=== PATIENT | female | born 1950 | race Two or more races ===

== ENCOUNTER 2016-09-04 13:33 | Inpatient (IN) | payer OTHER ==
--- NOTE | 2016-09-04 14:12 | HP ---
COWS - Scale Resting Pulse: 0= [place] 80 or Below Sweatin=Flushed/Facial Moisture Restless Observation: 3= Extraneous Movement Pupil Size: 2= Moderately Dilated Bone or Joint Aches: 2= Severe Diffuse Aches Runny Nose/ Eye Tearin= Runny Nose/Eyes GI Upset > 30mins: 3= Vomiting/Diarrhea Tremor Observation: 2= Slight Tremor Visible Yawning Observation: 2= >3x During Session Anxiety or Irritability: 2=Irritable/Anxious Goose Flesh Skin: 0=Smooth Skin COWS Score: 20 Admission ROS S - HPI Chief Complaint: I NEED HELP TO STOP USING HEROIN Allergies/Adverse Reactions: Allergies Allergy/AdvReac Type Severity Reaction Status Date / Time No Known Allergies Allergy Verified 09/04/16 13:51 History of Present Illness: THIS 65 YEARS OLD FEMALE WITH HEROIN DEPENDENCE,WITHDRAWAL SYMPTOM,LAST DETOX TO 12/09/15 S/P ARTHROSCOPY SURGERY OF RIGHT KNEE HEPATITIS C ANXIETY AND DEPRESSION CELLULITIS OF RIGHT WRIST ANXIETY AND DEPRESSION NICOTINE DEPENDENE POSITIVE PPD LONGEST PERIOD OF SOBRIETY 8 MONTHS Exam Limitations: No Limitations - Ebola screening Have you traveled outside of the country in the last 21 days: No (N) Have you had contact with anyone from an Ebola affected area: No Have you been sick,other than usual withdrawal symptoms: No Do you have a fever: No - Review of Systems Constitutional: Chills, Loss of Appetite, Malaise, Night Sweats, Weakness EENT: reports: Tearing, Nose Congestion Respiratory: reports: No Symptoms reported Cardiac: reports: No Symptoms Reported GI: reports: Diarrhea, Nausea, Vomiting, Abdominal cramping : reports: No Symptoms Reported Musculoskeletal: reports: Back Pain, Joint Pain, Muscle Pain, Joint Stiffness Integumentary: reports: Dryness, Other (REDNESS OF RIGHT WRIST AT SITE OF INJECTION 2 DAYS AGO) Neuro: reports: Headache, Tremors Endocrine: reports: No Symptoms Reported Hematology: reports: No Symptoms Reported Psychiatric: reports: Anxious, Depressed Patient History - Patient Medical History Hx Anemia: No Hx Asthma: No Hx Chronic Obstructive Pulmonary Disease (COPD): No Hx Cancer: No Hx Cardiac Disorders: No Hx Congestive Heart Failure: No Hx Hypertension: No Hx Hypercholesterolemia: No Hx Pacemaker: No HX Cerebrovascular Accident: No Hx Seizures: No Hx Dementia: No Hx Diabetes: No Hx Gastrointestinal Disorders: No Hx Liver Disease: No Hx Genitourinary Disorders: No Hx Sexually Transmitted Disorders: No Hx Renal Disease (ESRD): No Hx Thyroid Disease: No Hx Human Immunodeficiency Virus (HIV): No (LAST 02/10) Hx Hepatitis C: No Hx Depression: Yes (ANXIETY) Hx Suicide Attempt: No Hx Bipolar Disorder: No Hx Schizophrenia: No Other Medical History: NO SUICIDAL,NO HOMICIDAL,CELLULITIS OF RIGHT WRIST - Patient Surgical History Past Surgical History: Yes Hx Neurologic Surgery: No Hx Cataract Extraction: No Hx Cardiac Surgery: No Hx Lung Surgery: No Hx Breast Surgery: No Hx Breast Biopsy: No Hx Abdominal Surgery: No Hx Appendectomy: No Hx Cholecystectomy: No Hx Genitourinary Surgery: No Hx Section: No Hx Orthopedic Surgery: Yes (2012-rt knee arthroscopy ) Hx Hysterectomy: No Anesthesia Reaction: No - PPD History Previous Implant?: Yes Documented Results: Positive w/proof Implanted On Prior [facility] Admission?: No Date: 12/14/13 Results: 0 mm PPD to be Administered?: No - Reproductive History Last Menstrual Period: 12/08/03 Patient : No - Smoking Cessation Smoking history: Current every day smoker Have you smoked in the past 12 months: Yes Aproximately how many cigarettes per day: 10 Cigars Per Day: 0 Hx Chewing Tobacco Use: No Initiated information on smoking cessation: Yes 'Breaking Loose' booklet given: 09/04/16 - Substance & Tx. History Hx Alcohol Use: No Hx Substance Use: Yes Substance Use Type: Heroin Hx Substance Use Treatment: Yes (12/05/15 TO 12/09/15) - Substances Abused Heroin Route: Injection Frequency: Daily Amount used: 3-4 bags Age of first use: 19 Date of Last Use: 09/04/16 Family Disease History - Family Disease History Family Disease History: Diabetes: Mother (vaginal ca), CA: Mother, Other: Son ( DSA) Admission Physical Exam BHS - Vital Signs Vital Signs: Vital Signs Temperature 98.2 F 09/04/16 14:11 Pulse Rate 72 09/04/16 14:11 Respiratory Rate 18 09/04/16 14:11 Blood Pressure 125/70 09/04/16 14:11 O2 Sat by Pulse Oximetry (%) - Physical General Appearance: Yes: Moderate Distress, Tremorous, Irritable, Sweating, Anxious HEENTM: Yes: Nasal Congestion Respiratory: Yes: Lungs Clear Breast: Yes: Breast Exam Deferred Cardiology: Yes: Within Normal Limits, Regular Rhythm, Regular Rate, S1, S2 Abdominal: Yes: Within Normal Limits, Normal Bowel Sounds, Non Tender, Flat, Soft Genitourinary: Yes: Within Normal Limits Back: Yes: Muscle Spasm Musculoskeletal: Yes: Back pain, Joint Stiffness, Muscle Pain Extremities: Yes: Tremors, Inflammation (CELLULIITS OF RGHT WRISTS SWELLING WITH REDNESS) Neurological: Yes: reference test clerk II-XII NML intact, Fully Oriented, Alert, Motor Strength 5/5 Integumentary: Yes: Dry, Track Marcelino Lymphatic: Yes: Within Normal Limits - Diagnostic (1) PPD positive Current Visit: No Status: Acute (2) Hepatitis C Current Visit: No Status: Chronic Qualifiers: Viral hepatitis chronicity: chronic Hepatic coma status: without hepatic coma Qualified Code(s): B18.2 - Chronic viral hepatitis C (3) Nicotine dependence Current Visit: No Status: Chronic Qualifiers: Nicotine product type: cigarettes Substance use status: uncomplicated Qualified Code(s): F17.210 - Nicotine dependence, cigarettes, uncomplicated (4) Opioid dependence with withdrawal Current Visit: No Status: Chronic (5) Cellulitis Current Visit: Yes Status: Acute Cleared for Admission S - Detox or Rehab [facility] Level of Care: Medically Managed Detox Regimen/Protocol: Methadone S Breath Alcohol Content Breath Alcohol Content: 0
[2016-09-04 14:13] VITALS: BMI 26.0
[2016-09-04] MEDS ORDERED: METHADONE HCL 10 MG TABLET (FOR DETOX USE ONLY) PO ONE ×2 (14:32→23:00)
[2016-09-04] MEDS ORDERED: P-EPHED 60MG/TRIPROLIDI 2.5MG TABLET PO PRN (14:32)
[2016-09-04] MEDS ORDERED: diphenhydrAMINE HCL 50 MG CAPSULE PO PRN (14:32)
[2016-09-04] MEDS ORDERED: MAGNESIUM CITRATE 300 ML BOTTLE PO PRN (14:32)
[2016-09-04] MEDS ORDERED: LOPERAMIDE HCL 2 MG CAPSULE PO PRN (14:32)
[2016-09-04] MEDS ORDERED: MAG HYDROX/AL HYDROX/SIMETH 30 ML UNIT-DOSE CUP PO PRN (14:32)
[2016-09-04] MEDS ORDERED: ACETAMINOPHEN 325 MG TABLET (FP) PO PRN (14:32)
[2016-09-04] MEDS ORDERED: NICOTINE POLACRILEX 2 MG GUM BUC PRN (14:32)
[2016-09-04] MEDS ORDERED: MAGNESIUM HYDROX 2400MG/30ML ORAL SUSPENSION 30 ML CUP PO PRN (14:32)
[2016-09-04] MEDS ORDERED: hydrOXYzine PAMOATE 50 MG CAPSULE (FP) PO PRN (14:32)
[2016-09-04] MEDS ORDERED: guaiFENesin/D-METHORPHAN HB 10 ML UNIT-DOSE CUPS PO PRN (14:32)
[2016-09-04] MEDS ORDERED: MENTHOL/PHENOL 1 EACH UD MM PRN (14:32)
[2016-09-04] MEDS ORDERED: IBUPROFEN 400 MG TABLET (FP) PO PRN (14:32)
[2016-09-04] MEDS ORDERED: METHADONE HCL 10 MG TABLET ONE (17:39)
[2016-09-04] MEDS: diazePAM 5 MG TABLET PO PRN ×2 (17:57→22:28)
[2016-09-04] MEDS: CEPHALEXIN MONOHYDRATE 500 MG CAPSULE (UD) PO SCH (17:57)
[2016-09-04 18:49] LABS: URINE APPEARANCE SLCLOUDY; URINE BILIRUBIN NEGATIVE (NEGATIVE); URINE COLOR YELLOW; URINE GLUCOSE (UA) NEGATIVE (NEGATIVE); URINE KETONE NEGATIVE (NEGATIVE); URINE NITRITE NEGATIVE (NEGATIVE); URINE PROTEIN NEGATIVE (NEGATIVE); URINE UROBILINOGEN NEGATIVE E.U./dl (0.2-1.0)
[2016-09-04 18:57] LABS: URINE BLOOD 1+ (NEGATIVE); URINE LEUK ESTERASE 2+ (NEGATIVE)
[2016-09-04 19:00] LABS: URINE BACTERIA MANY /hpf (NONE SEEN); URINE MUCUS FEW; URINE RBC 2 /hpf (0-3); URINE WBC 31 /hpf (3-5)
[2016-09-05] MEDS: CEPHALEXIN MONOHYDRATE 500 MG CAPSULE (UD) PO SCH ×5 (00:36→23:12)
--- NOTE | 2016-09-05 07:55 | CONSULT ---
[facility] Psychiatric Consult - Data Date of interview: 09/05/16 Admission source: [facility] Identifying data: This is 65 years old lithuanian speaking female with history of MDD, Iintoxicated with: Heroin, Nicotine, Alcohol abuse history Substance Abuse History: - Smoking Cessation. Smoking history: Current every day smoker. Have you smoked in the past 12 months: Yes. Aproximately how many cigarettes per day: 10. Cigars Per Day: 0. Hx Chewing Tobacco Use: No. Initiated information on smoking cessation: Yes. 'Breaking Loose' booklet given : 09/04/16. - Substance & Tx. History. Hx Alcohol Use: No. Hx Substance Use: Yes. Substance Use Type: Heroin. Hx Substance Use Treatment: Yes (12/05/15 TO 12/09/15). - Substances Abused. Heroin. Route: Injection. Frequency: Daily. Amount used: 3-4 bags. Age of first use: 19. Date of Last Use: Medical History: History of Cellulitis, Hisotry of PPD+, , HepC+, Hisotry of Pancreatitis Psychiatric History: Patient reprots history of MDD, unclear psychiatrioc hospitalization history, preoccupied with insomnia, reports taking prior to admission: Ambien 190mg po qhs. Zoloft 25mg poqd Physical/Sexual Abuse/Trauma History: Denies Additional Comment: Ambien 190mg po qhs. Zoloft 25mg poqd Mental Status Exam - Mental Status Exam Alert and Oriented to: Person Cognitive Function: Fair Patient Appearance: Unkempt Mood: Anxious Affect: Labile Patient Behavior: Cooperative Voice Loudness: Normal Thought Process: Goal Oriented Thought Disorder: Being Controlled Hallucinations: Denies Suicidal Ideation: Denies Homicidal Ideation: Denies Insight/Judgement: Fair Sleep: Difficulty falling asleep Appetite: Weight gain Muscle strength/Tone: Normal Gait/Station: Normal Additional Comments: Ambien 190mg po qhs. Zoloft 25mg poqd Psychiatric Findings - Problem List ([place] 1, 2,3) (1) Cellulitis Current Visit: Yes Status: Acute (2) Major depressive disorder, recurrent episode, severe, with psychosis Current Visit: No Status: Chronic (3) Nicotine dependence Current Visit: No Status: Chronic Qualifiers: Nicotine product type: cigarettes Substance use status: uncomplicated Qualified Code(s): F17.210 - Nicotine dependence, cigarettes, uncomplicated (4) Opioid dependence Current Visit: No Status: Chronic Qualifiers: Substance use status: uncomplicated Qualified Code(s): F11.20 - Opioid dependence, uncomplicated (5) Opioid dependence with withdrawal Current Visit: No Status: Chronic (6) Chronic alcoholic pancreatitis Current Visit: No Status: Suspected - Initial Treatment Plan Initial Treatment Plan: Ambien 190mg po qhs. Zoloft 25mg poqd
[2016-09-05] MEDS ORDERED: METHADONE HCL 10 MG TABLET (FOR DETOX USE ONLY) PO ONE (10:00)
[2016-09-05 10:09] LABS: MCH 29.2 pg (25.7-33.7); MCHC 32.6 g/dl (32.0-36.0); MEAN CELL VOLUME 89.5 fl (80-96); MEAN PLT VOLUME 8.3 fl (7.5-11.1); PLATELET COUNT 249 K/MM3 (134-434); RDW 15.1 % (11.6-15.6); WHITE BLOOD COUNT 5.9 K/mm3 (4.0-10.0)
[2016-09-05 10:19] LABS: ALBUMIN 3.4 g/dl (3.4-5.0); ALK PHOS 79 U/L (45-117); ANION GAP 5 (8-16); BILIRUBIN,TOTAL 0.4 mg/dL (0.2-1.0); CALCIUM 9.3 mg/dL (8.5-10.1); CO2 30 mmol/L (21-32); CREATININE 0.6 mg/dL (0.55-1.02); GLUCOSE,RANDOM 118 mg/dL (74-106); SGOT/AST 53 U/L (15-37); SGPT/ALT 53 U/L (12-78); TOT PROT 7.6 g/dl (6.4-8.2)
[2016-09-05] MEDS: diazePAM 5 MG TABLET PO PRN (10:25)
[2016-09-05] MEDS: PRENATAL VITAMINS W/ FOLIC ACID TABLET (FP) PO SCH (10:25)
[2016-09-05] MEDS: SERTRALINE HCL 25 MG TABLET (FP) PO SCH (10:27)
--- NOTE | 2016-09-05 11:43 | PN ---
S COWS - Scale Resting Pulse: 0= [place] 80 or Below Sweatin=Flushed/Facial Moisture Restless Observation: 1= Difficult to Sit Still Pupil Size: 0= Normal to Room Light Bone or Joint Aches: 2= Severe Diffuse Aches Runny Nose/ Eye Tearin= Runny Nose/Eyes GI Upset > 30mins: 2= Nausea/Diarrhea Tremor Observation of Outstretched Hands: 2= Slight Tremor Visible Yawning Observation: 2= >3x During Session Anxiety or Irritability: 2=Irritable/Anxious Goose Flesh Skin: 3=Piloerection COWS Score: 18 S Progress Note (SOAP) Subjective: chills sweats nausea shakes interrupted sleep irritable agitation anxiety body aches Objective: 09/05/16 11:38 Vital Signs Temperature 98.3 F 09/05/16 10:32 Pulse Rate 73 09/05/16 10:32 Respiratory Rate 20 09/05/16 10:32 Blood Pressure 128/75 09/05/16 10:32 O2 Sat by Pulse Oximetry (%) Laboratory Tests 09/04/16 09/05/16 09/05/16 17:45 06:30 06:30 WBC 5.9 RBC 4.65 Hgb 13.6 Hct 41.6 MCV 89.5 MCHC 32.6 RDW 15.1 Plt Count 249 MPV 8.3 Sodium 140 Potassium 4.3 Chloride 105 Carbon Dioxide 30 Anion Gap 5 L BUN 12 Creatinine 0.6 Creat Clearance w eGFR > 60 Random Glucose 118 H D Calcium 9.3 Total Bilirubin 0.4 AST 53 H D ALT 53 D Alkaline Phosphatase 79 Total Protein 7.6 Albumin 3.4 Urine Color Yellow Urine Appearance Slcloudy Urine pH 5.0 Ur Specific [place] 1.016 Urine Protein Negative Urine Glucose (UA) Negative Urine Ketones Negative Urine Blood 1+ H Urine Nitrite Negative Urine Bilirubin Negative Urine Urobilinogen Negative Ur Leukocyte Esterase 2+ H D Urine RBC 2 Urine WBC 31 Ur Epithelial Cells Few Urine Bacteria Many Urine Mucus Few RPR Titer 09/05/16 06:30 WBC RBC Hgb Hct MCV MCHC RDW Plt Count MPV Sodium Potassium Chloride Carbon Dioxide Anion Gap BUN Creatinine Creat Clearance w eGFR Random Glucose Calcium Total Bilirubin AST ALT Alkaline Phosphatase Total Protein Albumin Urine Color Urine Appearance Urine pH Ur Specific [place] Urine Protein Urine Glucose (UA) Urine Ketones Urine Blood Urine Nitrite Urine Bilirubin Urine Urobilinogen Ur Leukocyte Esterase Urine RBC Urine WBC Ur Epithelial Cells Urine Bacteria Urine Mucus RPR Titer Nonreactive repeat u/a awake/alert ambulating no acute distress Assessment: 09/05/16 11:43 withdrawal sx Plan: continue detox increase fluids clonidine 0.1mg daily with parameters motrin/tylenol prn zofran prn
[2016-09-05] MEDS ORDERED: ONDANSETRON *ODT* 4 MG TABLET SL PRN (11:44)
[2016-09-05 16:42] LABS: URINE APPEARANCE CLOUDY; URINE BILIRUBIN NEGATIVE (NEGATIVE); URINE BLOOD NEGATIVE (NEGATIVE); URINE COLOR AMBER; URINE GLUCOSE (UA) NEGATIVE (NEGATIVE); URINE KETONE NEGATIVE (NEGATIVE); URINE LEUK ESTERASE 3+ (NEGATIVE); URINE NITRITE NEGATIVE (NEGATIVE); URINE PROTEIN NEGATIVE (NEGATIVE); URINE UROBILINOGEN NEGATIVE E.U./dl (0.2-1.0)
[2016-09-05 16:50] LABS: URINE MUCUS FEW; URINE RBC 4 /hpf (0-3); URINE WBC 44 /hpf (3-5)
[2016-09-05] MEDS: ZOLPIDEM TARTRATE 10 MG TABLET (PARK CARE ONLY) PO PRN (22:23)
[2016-09-05] MEDS: QUEtiapine FUMARATE 50 MG TABLET PO SCH (22:24)
[2016-09-05] MEDS: THIAMINE HCL 100 MG TABLET (FP) PO SCH (22:24)
[2016-09-06] MEDS: CEPHALEXIN MONOHYDRATE 500 MG CAPSULE (UD) PO SCH ×4 (06:22→23:02)
[2016-09-06] MEDS ORDERED: METHADONE HCL 5 MG TABLET (FOR DETOX USE ONLY) PO ONE (10:00)
[2016-09-06] MEDS: diazePAM 5 MG TABLET PO PRN ×2 (10:13→22:35)
[2016-09-06] MEDS: SERTRALINE HCL 25 MG TABLET (FP) PO SCH (10:13)
[2016-09-06] MEDS: PRENATAL VITAMINS W/ FOLIC ACID TABLET (FP) PO SCH (10:13)
[2016-09-06] MEDS ORDERED: INFLUENZA VACCINE 45 MCG/0.5 ML (MDV 16-17) IM ONE (12:00)
--- NOTE | 2016-09-06 14:22 | PN ---
[facility] COWS - Scale Resting Pulse: 0= [place] 80 or Below Sweatin=Flushed/Facial Moisture Restless Observation: 1= Difficult to Sit Still Pupil Size: 1= Pupils >than Normal Bone or Joint Aches: 1= Mild Discomfort Runny Nose/ Eye Tearin= Nasal Congestion GI Upset > 30mins: 1= Stomach Cramp Tremor Observation of Outstretched Hands: 1= Tremor [place], Not Seen Yawning Observation: 0= None Anxiety or Irritability: 2=Irritable/Anxious Goose Flesh Skin: 0=Smooth Skin COWS Score: 10 BHS Progress Note (SOAP) Subjective: interrupted sleep, sweats , mild anxiety Objective: 09/06/16 14:21 Vital Signs Temperature 98.1 F 09/06/16 09:51 Pulse Rate 71 09/06/16 09:51 Respiratory Rate 18 09/06/16 09:51 Blood Pressure 122/69 09/06/16 09:51 O2 Sat by Pulse Oximetry (%) Laboratory Tests 09/04/16 09/05/16 09/05/16 17:45 06:30 06:30 WBC 5.9 RBC 4.65 Hgb 13.6 Hct 41.6 MCV 89.5 MCHC 32.6 RDW 15.1 Plt Count 249 MPV 8.3 Sodium 140 Potassium 4.3 Chloride 105 Carbon Dioxide 30 Anion Gap 5 L BUN 12 Creatinine 0.6 Creat Clearance w eGFR > 60 Random Glucose 118 H D Calcium 9.3 Total Bilirubin 0.4 AST 53 H D ALT 53 D Alkaline Phosphatase 79 Total Protein 7.6 Albumin 3.4 Urine Color Yellow Urine Appearance Slcloudy Urine pH 5.0 Ur Specific [place] 1.016 Urine Protein Negative Urine Glucose (UA) Negative Urine Ketones Negative Urine Blood 1+ H Urine Nitrite Negative Urine Bilirubin Negative Urine Urobilinogen Negative Ur Leukocyte Esterase 2+ H D Urine RBC 2 Urine WBC 31 Ur Epithelial Cells Few Urine Bacteria Many Urine Mucus Few RPR Titer 09/05/16 09/05/16 06:30 15:00 WBC RBC Hgb Hct MCV MCHC RDW Plt Count MPV Sodium Potassium Chloride Carbon Dioxide Anion Gap BUN Creatinine Creat Clearance w eGFR Random Glucose Calcium Total Bilirubin AST ALT Alkaline Phosphatase Total Protein Albumin Urine Color Mally Urine Appearance Cloudy Urine pH 5.0 Ur Specific [place] 1.025 Urine Protein Negative Urine Glucose (UA) Negative Urine Ketones Negative Urine Blood Negative Urine Nitrite Negative Urine Bilirubin Negative Urine Urobilinogen Negative Ur Leukocyte Esterase 3+ H Urine RBC 4 Urine WBC 44 Ur Epithelial Cells Moderate Urine Bacteria Urine Mucus Few RPR Titer Nonreactive pt aox3 in nad ambulating Assessment: 09/06/16 14:21 withdrawl sx's Plan: cont. detox increase fluids vistaril prn
[2016-09-06] MEDS: THIAMINE HCL 100 MG TABLET (FP) PO SCH ×2 (22:34→22:35)
[2016-09-06] MEDS: ZOLPIDEM TARTRATE 10 MG TABLET (PARK CARE ONLY) PO PRN (22:34)
[2016-09-06] MEDS: QUEtiapine FUMARATE 50 MG TABLET PO SCH (22:35)
[2016-09-07] MEDS: CEPHALEXIN MONOHYDRATE 500 MG CAPSULE (UD) PO SCH ×4 (06:13→23:01)
[2016-09-07] MEDS: diazePAM 5 MG TABLET PO PRN ×2 (06:14→10:40)
[2016-09-07] MEDS ORDERED: METHADONE HCL 5 MG TABLET (FOR DETOX USE ONLY) PO ONE (10:00)
--- NOTE | 2016-09-07 10:21 | EKG ---
Test Reason : Blood Pressure : / mmHG Vent. Rate : 075 BPM Atrial Rate : 075 BPM P-R Int : 138 ms QRS Dur : 080 ms QT Int : 378 ms P-R-T Axes : 061 052 030 degrees QTc Int : 422 ms NORMAL SINUS RHYTHM NORMAL ECG NO PREVIOUS ECGS AVAILABLE Confirmed by KEANU SHAH MD ([id number]) on 09/07/2016 10:20:27 AM Referred By: Confirmed By:KEANU SHAH MD
[2016-09-07] MEDS: PRENATAL VITAMINS W/ FOLIC ACID TABLET (FP) PO SCH (10:40)
[2016-09-07] MEDS: SERTRALINE HCL 25 MG TABLET (FP) PO SCH (10:41)
--- NOTE | 2016-09-07 11:31 | PN ---
[facility] Progress Note (SOAP) Subjective: i'm feeling much better Objective: 09/07/16 11:29 Vital Signs Temperature 97.9 F 09/07/16 10:24 Pulse Rate 65 09/07/16 10:24 Respiratory Rate 20 09/07/16 10:24 Blood Pressure 122/65 09/07/16 10:24 O2 Sat by Pulse Oximetry (%) Laboratory Tests 09/04/16 09/05/16 09/05/16 17:45 06:30 06:30 WBC 5.9 RBC 4.65 Hgb 13.6 Hct 41.6 MCV 89.5 MCHC 32.6 RDW 15.1 Plt Count 249 MPV 8.3 Sodium 140 Potassium 4.3 Chloride 105 Carbon Dioxide 30 Anion Gap 5 L BUN 12 Creatinine 0.6 Creat Clearance w eGFR > 60 Random Glucose 118 H D Calcium 9.3 Total Bilirubin 0.4 AST 53 H D ALT 53 D Alkaline Phosphatase 79 Total Protein 7.6 Albumin 3.4 Urine Color Yellow Urine Appearance Slcloudy Urine pH 5.0 Ur Specific [place] 1.016 Urine Protein Negative Urine Glucose (UA) Negative Urine Ketones Negative Urine Blood 1+ H Urine Nitrite Negative Urine Bilirubin Negative Urine Urobilinogen Negative Ur Leukocyte Esterase 2+ H D Urine RBC 2 Urine WBC 31 Ur Epithelial Cells Few Urine Bacteria Many Urine Mucus Few RPR Titer 09/05/16 09/05/16 06:30 15:00 WBC RBC Hgb Hct MCV MCHC RDW Plt Count MPV Sodium Potassium Chloride Carbon Dioxide Anion Gap BUN Creatinine Creat Clearance w eGFR Random Glucose Calcium Total Bilirubin AST ALT Alkaline Phosphatase Total Protein Albumin Urine Color Mally Urine Appearance Cloudy Urine pH 5.0 Ur Specific [place] 1.025 Urine Protein Negative Urine Glucose (UA) Negative Urine Ketones Negative Urine Blood Negative Urine Nitrite Negative Urine Bilirubin Negative Urine Urobilinogen Negative Ur Leukocyte Esterase 3+ H Urine RBC 4 Urine WBC 44 Ur Epithelial Cells Moderate Urine Bacteria Urine Mucus Few RPR Titer Nonreactive pt aox3 in nad ambulating Plan: withdrawl sx's cont. detox increase fluids
[2016-09-07] MEDS: BACITRACIN 0.9 GM PACKET TP SCH ×2 (12:07→22:45)
[2016-09-07] MEDS: THIAMINE HCL 100 MG TABLET (FP) PO SCH (22:45)
[2016-09-07] MEDS: QUEtiapine FUMARATE 50 MG TABLET PO SCH (22:45)
[2016-09-07] MEDS: ZOLPIDEM TARTRATE 10 MG TABLET (PARK CARE ONLY) PO PRN (22:47)
[2016-09-08] MEDS: CEPHALEXIN MONOHYDRATE 500 MG CAPSULE (UD) PO SCH (05:42)
[2016-09-08] MEDS: PRENATAL VITAMINS W/ FOLIC ACID TABLET (FP) PO SCH (09:50)
[2016-09-08] MEDS: SERTRALINE HCL 25 MG TABLET (FP) PO SCH (09:50)
[2016-09-08] MEDS ORDERED: METHADONE HCL 10 MG TABLET (FOR DETOX USE ONLY) PO ONE (10:00)
--- NOTE | 2016-09-08 10:08 | DS ---
[facility] Detox Discharge Summary Admission Date: 09/04/16 Discharge Date: 09/08/16 - History Present History: Opioid Dependence - Physical Exam Results Vital Signs: Vital Signs Temperature 98.2 F 09/08/16 06:05 Pulse Rate 77 09/08/16 06:05 Respiratory Rate 16 09/08/16 06:05 Blood Pressure 111/71 09/08/16 06:05 O2 Sat by Pulse Oximetry (%) - Treatment Hospital Course: Detox Protocol Followed, Detoxed Safely, Responded well, Discharged Condition Good, Rehab Referral Accepted - Medication Discharge Medications: Ambulatory Orders Quetiapine Fumarate [Seroquel -] 150 mg PO HS 09/04/16 Sertraline HCl [Zoloft -] 25 mg PO DAILY 09/04/16 Zolpidem Tartrate [Ambien] 10 mg PO HS 09/04/16 Quetiapine Fumarate "Xr" [Seroquel Xr -] 150 mg PO HS #30 tab 09/05/16 Sertraline HCl [Zoloft -] 25 mg PO DAILY #30 tablet 09/05/16 Zolpidem Tartrate [Ambien] 10 mg PO HS PRN #14 tablet MDD 10 09/05/16 Cephalexin Monohydrate [Keflex -] 500 mg PO Q6HPO #20 capsule 09/08/16 - Diagnosis (1) Cellulitis Current Visit: Yes Status: Acute Qualifiers: Site of cellulitis: extremity Laterality: right (2) Chronic alcoholism Current Visit: Yes Status: Chronic Qualifiers: Substance use status: uncomplicated Qualified Code(s): F10.20 - Alcohol dependence, uncomplicated (3) PPD positive Current Visit: No Status: Acute (4) Depression Current Visit: No Status: Chronic (5) Hepatitis C Current Visit: No Status: Chronic Qualifiers: Viral hepatitis chronicity: chronic Hepatic coma status: without hepatic coma Qualified Code(s): B18.2 - Chronic viral hepatitis C (6) Major depressive disorder, recurrent episode, severe, with psychosis Current Visit: No Status: Chronic (7) Nicotine dependence Current Visit: Yes Status: Chronic Qualifiers: Nicotine product type: cigarettes Substance use status: uncomplicated Qualified Code(s): F17.210 - Nicotine dependence, cigarettes, uncomplicated (8) Opioid dependence with withdrawal Current Visit: Yes Status: Chronic (9) Chronic alcoholic pancreatitis Current Visit: No Status: Suspected - AMA Did Patient Leave Against Medical Advice: No
[2016-09-08 10:40] VITALS: BP 124/71; PULSE 70; TEMP 97.3
[2016-09-09] MEDS ORDERED: METHADONE HCL 5 MG TABLET (FOR DETOX USE ONLY) PO ONE (06:00)
== END 2016-09-08 09:59 | disposition home or self-care (01) | DRG 773 ==
LOC: YASAS 13:33 → Y6N 14:24
PROVIDERS: ADMIT Internal Medicine; ATTEND Internal Medicine
PROC: HZ2ZZZZ Detoxification Services for Substance Abuse Treatment (ICD-10-PCS; principal; 2016-09-04)
DX: F11.23 Opioid dependence with withdrawal (principal); F10.230 Alcohol dependence with withdrawal, uncomplicated; F17.201 Nicotine dependence, unspecified, in remission; F33.3 Major depressive disorder, recurrent, severe with psychotic symptoms; R76.11 Nonspecific reaction to tuberculin skin test without active tuberculosis; L03.113 Cellulitis of right upper limb; B18.2 Chronic viral hepatitis C; Z87.19 Personal history of other diseases of the digestive system
CPT/HCPCS: 36415; 80053; 81003; 81015; 85027; 86593; 93005; 93010

== ENCOUNTER 2017-01-14 13:39 | Inpatient (IN) | payer OTHER ==
[2017-01-14 14:05] VITALS: BMI 26.5
--- NOTE | 2017-01-14 14:08 | HP ---
COWS - Scale Resting Pulse: 0= [place] 80 or Below Sweatin= Chills/Flushing Restless Observation: 0= Sits Still Pupil Size: 0= Normal to Room Light Bone or Joint Aches: 2= Severe Diffuse Aches Runny Nose/ Eye Tearin= Runny Nose/Eyes GI Upset > 30mins: 1= Stomach Cramp Tremor Observation: 1= Tremor [place], Not Seen Yawning Observation: 0= None Anxiety or Irritability: 1=Feels Anxious/Irritable Goose Flesh Skin: 0=Smooth Skin COWS Score: 8 Admission ROS S - HPI Chief Complaint: I want to stop using, no more drugs (crying) Allergies/Adverse Reactions: Allergies Allergy/AdvReac Type Severity Reaction Status Date / Time No Known Allergies Allergy Verified 09/04/16 13:51 History of Present Illness: 66 yo woman here for detox from heroin. No seizures, no black outs. This is one of several admissions for detox. Exam Limitations: Clinical Condition - Ebola screening Have you traveled outside of the country in the last 21 days: No Have you had contact with anyone from an Ebola affected area: No Have you been sick,other than usual withdrawal symptoms: No Do you have a fever: No - Review of Systems Constitutional: Chills, Loss of Appetite, Night Sweats, Changes in sleep, Weakness EENT: reports: Blurred Vision Respiratory: reports: No Symptoms reported Cardiac: reports: No Symptoms Reported GI: reports: Nausea : reports: No Symptoms Reported Musculoskeletal: reports: Back Pain, Joint Pain Integumentary: reports: No Symptoms Reported Neuro: reports: No Symptoms reported Endocrine: reports: No Symptoms Reported Hematology: reports: No Symptoms Reported Psychiatric: reports: Judgement Intact, Mood/Affect Appropiate, Orientated x3, Anxious, Depressed Other Systems: Reviewed and Negative Patient History - Patient Medical History Hx Anemia: No Hx Asthma: No Hx Chronic Obstructive Pulmonary Disease (COPD): No Hx Cancer: No Hx Cardiac Disorders: No Hx Congestive Heart Failure: No Hx Hypertension: No Hx Hypercholesterolemia: No Hx Pacemaker: No HX Cerebrovascular Accident: No Hx Seizures: No Hx Dementia: No Hx Diabetes: No Hx Gastrointestinal Disorders: No Hx Liver Disease: No Hx Genitourinary Disorders: No Hx Sexually Transmitted Disorders: No Hx Renal Disease (ESRD): No Hx Thyroid Disease: No Hx Human Immunodeficiency Virus (HIV): No Hx Hepatitis C: Yes (not treated) Hx Depression: Yes (ANXIETY) Hx Suicide Attempt: No Hx Bipolar Disorder: No Hx Schizophrenia: No - Patient Surgical History Past Surgical History: Yes Hx Neurologic Surgery: No Hx Cataract Extraction: No Hx Cardiac Surgery: No Hx Lung Surgery: No Hx Breast Surgery: No Hx Breast Biopsy: No Hx Abdominal Surgery: No Hx Appendectomy: No Hx Cholecystectomy: No Hx Genitourinary Surgery: No Hx Section: No Hx Orthopedic Surgery: Yes (2012-rt knee arthroscopy ) Hx Hysterectomy: No Anesthesia Reaction: No - PPD History Previous Implant?: Yes Documented Results: Positive w/o proof Date: 12/07/15 (cxr normal) PPD to be Administered?: No - Reproductive History Patient is a Female of Child Bearing Age (11 -55 yrs old): No Last Menstrual Period: 12/08/03 - Smoking Cessation Smoking history: Current every day smoker Have you smoked in the past 12 months: Yes Aproximately how many cigarettes per day: 10 Cigars Per Day: 0 Hx Chewing Tobacco Use: No Initiated information on smoking cessation: Yes 'Breaking Loose' booklet given: 01/14/17 (give on floor) - Substance & Tx. History Hx Alcohol Use: No Hx Substance Use: Yes Substance Use Type: Heroin Hx Substance Use Treatment: Yes (detox) - Substances Abused Heroin Route: Injection Frequency: Daily Amount used: 8 bags Age of first use: 15 Date of Last Use: 01/14/17 Family Disease History - Family Disease History Family Disease History: Diabetes: Mother (, vaginal ca), CA: Mother, Other: Father (, alcohol), Son (three - no medical problems) Admission Physical Exam [facility] - Vital Signs Vital Signs: Vital Signs - 24 hr 01/14/17 14:03 Temperature 97.2 F L Pulse Rate 72 Respiratory 20 Rate Blood Pressure 116/69 - Physical General Appearance: Yes: Nourished, Appropriately Dressed, Mild Distress HEENTM: Yes: Hearing grossly Normal, Normal ENT Inspection, Normocephalic, Normal Voice, Pharynx Normal Respiratory: Yes: Normal Breath Sounds, No Respiratory Distress Neck: Yes: No masses,lesions,Nodules, Supple Breast: Yes: Breast Exam Deferred Cardiology: Yes: Regular Rhythm, Regular Rate Abdominal: Yes: Soft Genitourinary: Yes: Within Normal Limits Back: Yes: Normal Inspection Musculoskeletal: Yes: full range of Motion, Gait Steady, Back pain, Joint Stiffness Extremities: Yes: Normal Capillary Refill, Normal Inspection, Normal Range of Motion Neurological: Yes: Fully Oriented, Alert, Normal Mood/Affect Integumentary: Yes: Normal Color, Warm, Track Marcelino (no abscess noted - no erythema) Lymphatic: Yes: Within Normal Limits - Diagnostic (1) PPD positive Current Visit: Yes Status: Chronic (2) Hepatitis C Current Visit: Yes Status: Chronic Qualifiers: Viral hepatitis chronicity: chronic Hepatic coma status: without hepatic coma Qualified Code(s): B18.2 - Chronic viral hepatitis C (3) Nicotine dependence Current Visit: Yes Status: Chronic Qualifiers: Nicotine product type: cigarettes Substance use status: uncomplicated Qualified Code(s): F17.210 - Nicotine dependence, cigarettes, uncomplicated (4) Opioid dependence with withdrawal Current Visit: Yes Status: Chronic Cleared for Admission [facility] - Detox or Rehab [facility] Level of Care: Medically Managed Detox Regimen/Protocol: Methadone [facility] Breath Alcohol Content Breath Alcohol Content: 0 Urine Pregancy Test - Result Urine Test Results: Negative- NO Line Present Urine Drug Screen - Results Drug Screen Negative: No Urine Drug Screen Results: OPI-Opiates
[2017-01-14] MEDS ORDERED: MAGNESIUM CITRATE 300 ML BOTTLE PO PRN (14:18)
[2017-01-14] MEDS ORDERED: IBUPROFEN 400 MG TABLET (FP) PO PRN (14:18)
[2017-01-14] MEDS ORDERED: MAGNESIUM HYDROX 2400MG/30ML ORAL SUSPENSION 30 ML CUP PO PRN (14:18)
[2017-01-14] MEDS ORDERED: ACETAMINOPHEN 325 MG TABLET (FP) PO PRN (14:18)
[2017-01-14] MEDS ORDERED: MENTHOL/PHENOL 1 EACH UD MM PRN (14:18)
[2017-01-14] MEDS ORDERED: guaiFENesin/D-METHORPHAN HB 10 ML UNIT-DOSE CUPS PO PRN (14:18)
[2017-01-14] MEDS ORDERED: diphenhydrAMINE HCL 50 MG CAPSULE PO PRN (14:18)
[2017-01-14] MEDS ORDERED: METHADONE HCL 10 MG TABLET (FOR DETOX USE ONLY) PO ONE ×3 (14:18→23:00)
[2017-01-14] MEDS ORDERED: P-EPHED 60MG/TRIPROLIDI 2.5MG TABLET PO PRN (14:18)
[2017-01-14] MEDS ORDERED: MAG HYDROX/AL HYDROX/SIMETH 30 ML UNIT-DOSE CUP PO PRN (14:18)
[2017-01-14] MEDS ORDERED: LOPERAMIDE HCL 2 MG CAPSULE PO PRN (14:18)
[2017-01-14] MEDS: diazePAM 5 MG TABLET PO PRN ×2 (16:46→22:23)
[2017-01-14 19:35] LABS: URINE APPEARANCE SLCLOUDY; URINE BILIRUBIN NEGATIVE (NEGATIVE); URINE BLOOD NEGATIVE (NEGATIVE); URINE COLOR YELLOW; URINE GLUCOSE (UA) NEGATIVE (NEGATIVE); URINE KETONE NEGATIVE (NEGATIVE); URINE NITRITE POSITIVE (NEGATIVE); URINE PROTEIN NEGATIVE (NEGATIVE); URINE UROBILINOGEN NEGATIVE E.U./dl (0.2-1.0)
[2017-01-14 19:39] LABS: URINE LEUK ESTERASE 3+ (NEGATIVE)
[2017-01-14 19:43] LABS: URINE BACTERIA RARE /hpf (NONE SEEN); URINE MUCUS RARE; URINE RBC 1 /hpf (0-3); URINE WBC 76 /hpf (3-5)
[2017-01-14] MEDS: THIAMINE HCL 100 MG TABLET (FP) PO SCH (22:22)
[2017-01-15] MEDS: diazePAM 5 MG TABLET PO PRN ×2 (06:16→22:23)
[2017-01-15] MEDS ORDERED: METHADONE HCL 10 MG TABLET (FOR DETOX USE ONLY) PO ONE (10:00)
--- NOTE | 2017-01-15 10:24 | PN ---
[facility] CIWA - CIWA Score Nausea/Vomitin Muscle Tremors: 3 Anxiety: 3 Agitation: 2 Paroxysmal Sweats: 1-Minimal Palms Moist Orientation: 0-Oriented Tacttile Disturbances: 1-Very Mild Itch/Numbness Auditory Disturbances: 1-Very Mild Visual Disturbances: 1-Very Mild Sensitivity Headache: 2-Mild CIWA-Ar Total Score: 17 B[facility] Progress Note (SOAP) Subjective: ALERT,IRRITABLE,ANXIOUS,INTERRUPTED SLEEP,PAIN IN THE BODY AND BACK Objective: 01/15/17 10:21 Vital Signs Temperature 98.1 F 01/15/17 09:29 Pulse Rate 63 01/15/17 09:29 Respiratory Rate 18 01/15/17 09:29 Blood Pressure 114/63 01/15/17 09:29 O2 Sat by Pulse Oximetry (%) EKG NSR,NORMAL ECG Laboratory Last Values Urine Color Yellow 01/14/17 19:00 Urine Appearance Slcloudy 01/14/17 19:00 Urine pH 6.0 (5.0-8.0) 01/14/17 19:00 Urine Protein Negative (NEGATIVE) 01/14/17 19:00 Urine Glucose (UA) Negative (NEGATIVE) 01/14/17 19:00 Urine Ketones Negative (NEGATIVE) 01/14/17 19:00 Urine Blood Negative (NEGATIVE) 01/14/17 19:00 Urine Nitrite Positive (NEGATIVE) 01/14/17 19:00 Urine Bilirubin Negative (NEGATIVE) 01/14/17 19:00 Urine Urobilinogen Negative E.U./dl (0.2-1.0) 01/14/17 19:00 Ur Leukocyte Esterase 3+ (NEGATIVE) H 01/14/17 19:00 Urine RBC 1 /hpf (0-3) 01/14/17 19:00 Urine WBC 76 /hpf (3-5) 01/14/17 19:00 Ur Epithelial Cells Few /hpf (FEW) 01/14/17 19:00 Urine Bacteria Rare /hpf (NONE SEEN) 01/14/17 19:00 Urine Mucus Rare 01/14/17 19:00 LABS PENDING Assessment: 01/15/17 10:23 WITHDRAWAL SYMPTOM Plan: CONTINUE DETOX,REPEAT UA AND URINE FOR C/S,ENCOURAGE ORAL FLUID
[2017-01-15] MEDS: PRENATAL VITAMINS W/ FOLIC ACID TABLET (FP) PO SCH (10:34)
[2017-01-15 10:43] LABS: ALBUMIN 3.3 g/dl (3.4-5.0); ALK PHOS 68 U/L (45-117); ANION GAP 9 (8-16); BILIRUBIN,TOTAL 0.5 mg/dL (0.2-1.0); CALCIUM 8.7 mg/dL (8.5-10.1); CO2 28 mmol/L (21-32); CREATININE 0.5 mg/dL (0.55-1.02); GLUCOSE,RANDOM 93 mg/dL (74-106); SGOT/AST 45 U/L (15-37); SGPT/ALT 40 U/L (12-78); TOT PROT 7.1 g/dl (6.4-8.2)
--- NOTE | 2017-01-15 11:06 | EKG ---
Test Reason : Blood Pressure : / mmHG Vent. Rate : 060 BPM Atrial Rate : 060 BPM P-R Int : 140 ms QRS Dur : 084 ms QT Int : 420 ms P-R-T Axes : 056 046 026 degrees QTc Int : 420 ms NORMAL SINUS RHYTHM NORMAL ECG WHEN COMPARED WITH ECG OF 04-SEP-2016 15:12, NO SIGNIFICANT CHANGE WAS FOUND Confirmed by MD JOANN, TRESA ([id number]) on 01/15/2017 11:06:53 AM Referred By: Confirmed By:TRESA DAVID MD
[2017-01-15 11:18] LABS: MCH 29.3 pg (25.7-33.7); MCHC 32.6 g/dl (32.0-36.0); MEAN CELL VOLUME 89.8 fl (80-96); MEAN PLT VOLUME 9.5 fl (7.5-11.1); PLATELET COUNT 193 K/MM3 (134-434); WHITE BLOOD COUNT 4.9 K/mm3 (4.0-10.0)
[2017-01-15] MEDS ORDERED: ONDANSETRON *ODT* 4 MG TABLET SL PRN (11:50)
[2017-01-15] MEDS: THIAMINE HCL 100 MG TABLET (FP) PO SCH (22:23)
[2017-01-16] MEDS: diazePAM 5 MG TABLET PO PRN ×2 (06:02→22:22)
--- NOTE | 2017-01-16 09:51 | CONSULT ---
[facility] Psychiatric Consult - Data Date of interview: 01/16/17 Admission source: [facility] Identifying data: Readmission to [facility] for this 66 y/o female seeking detox treatment on for heroin dependence.Patient is single,a mother of three,homeless,unemployed and supported on Social Security benefits. Substance Abuse History: - Smoking Cessation. Smoking history: Current every day smoker. Have you smoked in the past 12 months: Yes. Aproximately how many cigarettes per day: 10. Cigars Per Day: 0. Hx Chewing Tobacco Use: No. Initiated information on smoking cessation: Yes. 'Breaking Loose' booklet given : 01/14/17 (give on floor). - Substance & Tx. History. Hx Alcohol Use: No. Hx Substance Use: Yes. Substance Use Type: Heroin. Hx Substance Use Treatment : Yes (detox). - Substances Abused. Heroin. Route: Injection. Frequency: Daily. Amount used: 8 bags. Age of first use: 15. Date of Last Use: . Confirmed by patient. Medical History: Hepatitis C and a history of hysterectomy/arthroscopic surgery on right knee in 2011. Psychiatric History: First contact with Psychiatry : 2007.Circumstance : of mother.Diagnosed with MDD.[facility] [place] [facility] the [facility] of one visit to [facility] (evaluated in CPE and released after a few hours) in 2016.Ms Ge Galeana sees a psychiatrist at [facility] in the [place].She is maintained on a regimen of seroquel 100 mg/hs + zoloft 25 mg/day + ambien 10 mg/hs.Noted history of suicide attempts via self-mutilation (wrist-cutting). Physical/Sexual Abuse/Trauma History: Patient declines to discuss this domain. Additional Comment: Urine Drug Screen Results: OPI-Opiates.Noted. Mental Status Exam - Mental Status Exam Alert and Oriented to: Time, Place, Person Cognitive Function: Good Patient Appearance: Well Groomed Mood: Nervous, Withdrawn, Anxious Affect: Mood Congruent, Constricted Patient Behavior: Fatigued, Appropriate, Cooperative Speech Pattern: Clear, Appropriate (in bhutanese;patient is comfortable only with the bhutanese language) Voice Loudness: Normal Thought Process: Goal Oriented Thought Disorder: Not Present Hallucinations: Denies Suicidal Ideation: Denies Homicidal Ideation: Denies Insight/Judgement: Poor Sleep: Poorly, Difficulty falling asleep Appetite: Good Muscle strength/Tone: Normal Gait/Station: Normal Psychiatric Findings - Problem List ([place] 1, 2,3) (1) Opioid dependence with withdrawal Current Visit: Yes Status: Acute (2) Nicotine dependence Current Visit: Yes Status: Acute Qualifiers: Nicotine product type: cigarettes Substance use status: uncomplicated Qualified Code(s): F17.210 - Nicotine dependence, cigarettes, uncomplicated (3) Chronic alcoholism Current Visit: Yes Status: Chronic Qualifiers: Substance use status: uncomplicated Qualified Code(s): F10.20 - Alcohol dependence, uncomplicated (4) Substance induced mood disorder Current Visit: Yes Status: Acute (5) Depressive disorder Current Visit: Yes Status: Chronic (6) Hepatitis C Current Visit: Yes Status: Chronic Qualifiers: Viral hepatitis chronicity: chronic Hepatic coma status: without hepatic coma Qualified Code(s): B18.2 - Chronic viral hepatitis C (7) PPD positive Current Visit: Yes Status: Chronic (8) Chronic alcoholic pancreatitis Current Visit: No Status: Suspected (9) Insomnia Current Visit: Yes Status: Acute - Initial Treatment Plan Initial Treatment Plan: Psychoeducation.Detoxification.Medications : seroquel 50 mg po hs (intentionally reduced for prevention of oversedation) + ambien 5 mg po hs + zoloft 25 mg po daily.Side effects/benefits discussed with the patient.Will titrate seroquel to 100 mg/hs in next 24 hrs if no report of adverse effects (gait disturbances or oversedation).Patient is made aware of this careplan.She agrees.Observation.
[2017-01-16] MEDS ORDERED: METHADONE HCL 5 MG TABLET (FOR DETOX USE ONLY) PO ONE (10:00)
[2017-01-16 10:06] LABS: URINE APPEARANCE CLEAR; URINE BILIRUBIN NEGATIVE (NEGATIVE); URINE BLOOD NEGATIVE (NEGATIVE); URINE COLOR LTYELLOW; URINE GLUCOSE (UA) NEGATIVE (NEGATIVE); URINE KETONE NEGATIVE (NEGATIVE); URINE NITRITE NEGATIVE (NEGATIVE); URINE PROTEIN NEGATIVE (NEGATIVE); URINE UROBILINOGEN NEGATIVE E.U./dl (0.2-1.0)
[2017-01-16 10:08] LABS: URINE LEUK ESTERASE TRACE (NEGATIVE)
[2017-01-16 10:14] LABS: URINE BACTERIA MODERATE /hpf (NONE SEEN); URINE RBC <1 /hpf (0-3); URINE WBC 5 /hpf (3-5)
--- NOTE | 2017-01-16 10:20 | PN ---
S COWS - Scale Resting Pulse: 0= [place] 80 or Below Sweatin= Chills/Flushing Restless Observation: 3= Extraneous Movement Pupil Size: 1= Pupils >than Normal Bone or Joint Aches: 2= Severe Diffuse Aches Runny Nose/ Eye Tearin= Runny Nose/Eyes GI Upset > 30mins: 3= Vomiting/Diarrhea Tremor Observation of Outstretched Hands: 2= Slight Tremor Visible Yawning Observation: 1= 1-2x During Session Anxiety or Irritability: 2=Irritable/Anxious Goose Flesh Skin: 0=Smooth Skin COWS Score: 17 S Progress Note (SOAP) Subjective: ALERT,IRRITABLE,ANXIOUS,INTERRUPTED SLEEP,TREMOR,PAIN IN THE BODY AND BACK Objective: 01/16/17 10:18 Vital Signs Temperature 98.2 F 01/16/17 09:46 Pulse Rate 62 01/16/17 09:46 Respiratory Rate 18 01/16/17 09:46 Blood Pressure 129/79 01/16/17 09:46 O2 Sat by Pulse Oximetry (%) Laboratory Results - last 24 hr 01/14/17 01/15/17 01/15/17 19:00 07:40 07:40 WBC 4.9 RBC 4.58 Hgb 13.4 Hct 41.2 MCV 89.8 MCHC 32.6 RDW 14.0 Plt Count 193 D MPV 9.5 D Sodium 142 Potassium 4.2 Chloride 105 Carbon Dioxide 28 Anion Gap 9 BUN 7 D Creatinine 0.5 L Creat Clearance w eGFR > 60 Random Glucose 93 D Calcium 8.7 Total Bilirubin 0.5 D AST 45 H ALT 40 D Alkaline Phosphatase 68 Total Protein 7.1 Albumin 3.3 L Urine Color Urine Appearance Urine pH Ur Specific [place] <= 1.005 Urine Protein Urine Glucose (UA) Urine Ketones Urine Blood Urine Nitrite Urine Bilirubin Urine Urobilinogen Ur Leukocyte Esterase Urine RBC Urine WBC Ur Epithelial Cells Urine Bacteria RPR Titer 01/15/17 01/16/17 07:40 07:00 WBC RBC Hgb Hct MCV MCHC RDW Plt Count MPV Sodium Potassium Chloride Carbon Dioxide Anion Gap BUN Creatinine Creat Clearance w eGFR Random Glucose Calcium Total Bilirubin AST ALT Alkaline Phosphatase Total Protein Albumin Urine Color Ltyellow Urine Appearance Clear Urine pH 6.0 Ur Specific [place] Urine Protein Negative Urine Glucose (UA) Negative Urine Ketones Negative Urine Blood Negative Urine Nitrite Negative Urine Bilirubin Negative Urine Urobilinogen Negative Ur Leukocyte Esterase Trace H D Urine RBC <1 Urine WBC 5 Ur Epithelial Cells Rare Urine Bacteria Moderate RPR Titer Nonreactive Assessment: 01/16/17 10:19 WITHDRAWAL SYMPTOM Plan: CONTINUE DETOX
[2017-01-16] MEDS: PRENATAL VITAMINS W/ FOLIC ACID TABLET (FP) PO SCH (10:31)
[2017-01-16] MEDS: SERTRALINE HCL 25 MG TABLET (FP) PO SCH (10:54)
[2017-01-16] MEDS ORDERED: ZOLPIDEM TARTRATE 5 MG TABLET PO PRN (13:05)
[2017-01-16] MEDS ORDERED: QUEtiapine FUMARATE 50 MG TABLET PO SCH (22:00)
[2017-01-16] MEDS ORDERED: hydrOXYzine PAMOATE 50 MG CAPSULE (FP) PO SCH (22:00)
[2017-01-16] MEDS: THIAMINE HCL 100 MG TABLET (FP) PO SCH (23:18)
--- NOTE | 2017-01-17 09:32 | PN ---
[facility] Progress Note (SOAP) Subjective: ALERT,IRRITABLE,ANXIOUS,INTERRUPTED SLEEP,PAIN IN THE BODY AND BACK Objective: 01/17/17 09:31 Vital Signs Temperature 98.1 F 01/17/17 06:17 Pulse Rate 66 01/17/17 06:17 Respiratory Rate 18 01/17/17 06:17 Blood Pressure 143/86 01/17/17 06:17 O2 Sat by Pulse Oximetry (%) Assessment: 01/17/17 09:31 WITHDRAWAL SYMPTOM Plan: CONTINUE DETOX
--- NOTE | 2017-01-17 09:33 | PN ---
S Progress Note Note: PATIENT DID NOT WANT TO COMPLETE TREATMENT,SIGNED RELEASE AMA,SEEN BY COUNSELOR
--- NOTE | 2017-01-17 09:37 | DS ---
[facility] Detox Discharge Summary Admission Date: 01/14/17 Discharge Date: 01/17/17 - History Present History: Alcohol Dependence, Opioid Dependence Additional Comments: PATIENT DID NOT WANT TO COMPLETE TREATMENT,SEEN BY COUNSELOR,SIGNED RELEASE AMA FOLLOW UP WITH AFTER CARE PROGRAM ARRANGEMENT Pertinent Past History: HEPATITIS C OSTEOARTHRITIS OF RIGHT KNEE CHRONIC PANCREATITIS - Physical Exam Results Vital Signs: Vital Signs Temperature 98.1 F 01/17/17 06:17 Pulse Rate 66 01/17/17 06:17 Respiratory Rate 18 01/17/17 06:17 Blood Pressure 143/86 01/17/17 06:17 O2 Sat by Pulse Oximetry (%) Pertinent Admission Physical Exam Findings: WITHDRAWAL SYMPTOM - Medication Discharge Medications: Ambulatory Orders Sertraline HCl [Zoloft -] 25 mg PO DAILY 09/04/16 Quetiapine Fumarate "Xr" [Seroquel Xr -] 150 mg PO HS #30 tab 09/05/16 Zolpidem Tartrate [Ambien] 10 mg PO HS PRN #14 tablet MDD 10 09/05/16 - Diagnosis (1) Insomnia Current Visit: Yes Status: Acute (2) Nicotine dependence Current Visit: Yes Status: Acute Qualifiers: Nicotine product type: cigarettes Substance use status: uncomplicated Qualified Code(s): F17.210 - Nicotine dependence, cigarettes, uncomplicated (3) Opioid dependence with withdrawal Current Visit: Yes Status: Acute (4) Depressive disorder Current Visit: Yes Status: Chronic (5) Hepatitis C Current Visit: Yes Status: Chronic Qualifiers: Viral hepatitis chronicity: chronic Hepatic coma status: without hepatic coma Qualified Code(s): B18.2 - Chronic viral hepatitis C (6) Chronic alcoholic pancreatitis Current Visit: No Status: Suspected (7) Alcohol dependence with uncomplicated withdrawal Current Visit: Yes Status: Acute - AMA Did Patient Leave Against Medical Advice: Yes
[2017-01-17] MEDS: PRENATAL VITAMINS W/ FOLIC ACID TABLET (FP) PO SCH (09:59)
[2017-01-17] MEDS: SERTRALINE HCL 25 MG TABLET (FP) PO SCH (09:59)
[2017-01-17] MEDS ORDERED: METHADONE HCL 5 MG TABLET (FOR DETOX USE ONLY) PO ONE (10:00)
[2017-01-17 10:15] VITALS: BP 140/81; PULSE 64; TEMP 97.9
--- NOTE | 2017-01-17 17:24 | PN ---
[facility] Progress Note Note: Psychiatry Attending's note : Informed of patient's discharge. No scripts given for seroquel and sertraline. Reason : discrepancy between pharmacy claims and patient's self-report on admission.According to pharmacy claims of 01/10/17,the patient filled scripts for lexapro 20 mg/day (tab # 30) + seroquel 300 mg/hs (tab # 30) at the [facility].Conflictual medication reconciliation. Patient will follow with her psychiatrist.
[2017-01-18] MEDS ORDERED: METHADONE HCL 10 MG TABLET (FOR DETOX USE ONLY) PO ONE (10:00)
[2017-01-19] MEDS ORDERED: METHADONE HCL 5 MG TABLET (FOR DETOX USE ONLY) PO ONE (06:00)
== END 2017-01-17 10:20 | disposition left against medical advice (07) | DRG 770 ==
LOC: YASAS 13:39 → Y6N 14:28
PROVIDERS: ADMIT Internal Medicine Addiction Medicine; ATTEND Internal Medicine Addiction Medicine
PROC: HZ2ZZZZ Detoxification Services for Substance Abuse Treatment (ICD-10-PCS; principal; 2017-01-14)
DX: F11.23 Opioid dependence with withdrawal (principal); F10.230 Alcohol dependence with withdrawal, uncomplicated; F17.210 Nicotine dependence, cigarettes, uncomplicated; F32.9 Major depressive disorder, single episode, unspecified; F19.24 Other psychoactive substance dependence with psychoactive substance-induced mood disorder; K86.0 Alcohol-induced chronic pancreatitis; G47.00 Insomnia, unspecified; B18.2 Chronic viral hepatitis C; R76.11 Nonspecific reaction to tuberculin skin test without active tuberculosis
CPT/HCPCS: 36415; 71020-TC; 80053; 81003; 81015; 85027; 86593; 93005; 93010